=== PATIENT | male | born 1955 | race Caucasian/White ===

== ENCOUNTER 2023-07-05 09:17 | Inpatient (IN) | payer MEDICARE, MEDICAID ==
[~2023-07-05] VITALS: Ht 167.6 cm; Wt 84.8 kg
--- NOTE | 2023-07-05 09:30 | NUR ---
DR. EARL TOLD WANTS ORDERS ADDED.
[2023-07-05 10:31] LABS: BASOPHILS # (AUTO) 0.1 X10'3 (0-0.2); BASOPHILS % (AUTO) 0.5 % (0-1); EOSINOPHILS % (AUTO) 0.3 % (0-6); HEMATOCRIT 47.2 % (42.0-52.0); HEMOGLOBIN 15.4 g/dl (14.0-17.9); LYMPHOCYTES # (AUTO) 0.4 X10'3 (1.1-4.8); LYMPHOCYTES % (AUTO) 3.3 % (21-51); MEAN CORPUSCULAR HEMOGLOBIN 33.1 PG (27.0-31.0); MEAN CORPUSCULAR HGB CONC 32.7 g/dL (33.0-36.5); MEAN CORPUSCULAR VOLUME 101.3 FL (78-98); MEAN PLATELET VOLUME 8.1 FL (7.4-10.4); MONOCYTES # (AUTO) 0.7 X10'3 (0-0.9); MONOCYTES % (AUTO) 6.4 % (2-12); NEUTROPHILS # (AUTO) 9.6 X10'3 (1.8-7.7); NEUTROPHILS % (AUTO) 89.5 % (42-75); PLATELET COUNT 175 X10'3 (140-440); RED BLOOD COUNT 4.66 X10'6 (4.70-6.10); RED CELL DISTRIBUTION WIDTH 16.4 % (11.5-14.5); WHITE BLOOD COUNT 10.8 X10'3 (4.5-11.0)
[2023-07-05 10:41] LABS: ALBUMIN 2.8 G/DL (3.4-5.0); ALBUMIN/GLOBULIN RATIO 0.7 (1.1-1.5); ALKALINE PHOSPHATASE 61 IU/L (46-116); ANION GAP 6 (8-16); ASPARTATE AMINO TRANSFERASE 16 U/L (10-37); BILIRUBIN,TOTAL 2.4 MG/DL (0.1-1.0); BLOOD UREA NITROGEN 18 MG/DL (7-18); BUN/CREATININE RATIO 26.5 (10.0-20.0); CALCIUM 8.5 MG/DL (8.5-10.1); CHLORIDE 104 MMOL/L (99-107); CREATININE 0.68 MG/DL (0.60-1.10); GLUCOSE 93 MG/DL (70-104); LIPASE < 50 U/L (73-393); POTASSIUM 4.2 MMOL/L (3.5-5.1); PRO BRAIN NATRIURETIC PEPTIDE 5685 PG/ML (0-125); SODIUM 142 MMOL/L (135-145); TOTAL CARBON DIOXIDE 32.2 MMOL/L (24-32); TOTAL PROTEIN 6.6 G/DL (6.4-8.2); eCRCL 91 ML/MIN; eGFR > 90 ML/MIN
[2023-07-05 10:46] LABS: ALANINE AMINOTRANSFERASE < 6 U/L (12-78)
[2023-07-05] MEDS ORDERED: furosemide 10 MG/1 ML 10ml inj IV ONE (10:50)
[2023-07-05] MEDS ORDERED: aspirin 81mg tab.chew PO ONE (10:50)
[2023-07-05] MEDS ORDERED: ondansetron/PF 4mg/2ml inj IV PRN (12:50)
[2023-07-05] MEDS ORDERED: potassium Cl 20 mEq SR tablet PO PRN ×2 (12:50)
[2023-07-05] MEDS ORDERED: magnesium hydroxide 30ml (MOM) UD suspension PO PRN (12:50)
[2023-07-05] MEDS ORDERED: potassium Cl 40MEQ/1/2NS 520ml 520 ML IV PRN (12:50)
[2023-07-05] MEDS ORDERED: magnesium Cl slow-release 64mg tablet PO PRN (12:50)
[2023-07-05] MEDS ORDERED: magnesium 4gm in 100ml NS 100 ML IV PRN (12:50)
[2023-07-05] MEDS ORDERED: magnesium 2GM in 50ml NS 50 ML IV PRN (12:50)
[2023-07-05] MEDS ORDERED: acetaminophen 325mg tablet PO PRN (12:50)
[2023-07-05] MEDS ORDERED: mag hydrox/Alum hydrox/simeth 30ml oral suspension PO PRN (12:50)
[2023-07-05] MEDS ORDERED: vancomycin/NS 1 GM ADD-VANTAGE 250 ML IV SCH (13:04)
[2023-07-05 13:20] LABS: HEMOGLOBIN A1C 5.4 % (4.5-6.2)
[2023-07-05] MEDS ORDERED: ampicillin/sulbac 3gm/NS 100ml 100 ML IV ONE ×2 (14:00→15:25)
[2023-07-05 14:43] LABS: BILIRUBIN,URINE NEGATIVE (Neg); CLARITY,URINE CLOUDY (Clear); COLOR,URINE YELLOW (Yellow); GLUCOSE, URINE NEGATIVE (Neg); KETONES,URINE NEGATIVE (Neg); LEUKOCYTE ESTERASE ,URINE TRACE (Neg); NITRITES, URINE NEGATIVE (Neg); OCCULT BLOOD,URINE MODERATE (Neg); PROTEIN,URINE NEGATIVE (Neg)
[2023-07-05 14:50] LABS: UA COLLECTION TYPE URINAL
[2023-07-05 14:52] LABS: BACTERIA,URINE 4+ /HPF (Neg); RBC,URINE 20-50 /HPF (0-2); SQUAMOUS EPITHELIAL CELL,UR FEW /LPF (FEW)
[2023-07-05] MEDS: heparin, porcine 5000 units/ml vial SQ SCH (16:00)
[2023-07-05 18:00] VITALS: BP 140/65; PULSE 74; RESP 16; TEMP 97.8; O2SAT 97
[2023-07-05] MEDS ORDERED: NO HOME MEDS (18:36)
[2023-07-05] MEDS: K and/or MAG REPLACEMENT MC SCH (19:28)
[2023-07-05] MEDS: furosemide 20 MG/2 ML vial IV SCH (19:39)
[2023-07-05] MEDS: docusate sod 100mg capsule PO SCH (19:40)
[2023-07-05 20:00] VITALS: RESP 17; O2SAT 93
[2023-07-05] MEDS ORDERED: furosemide 40mg/4ml inj IV ONE (20:00)
--- NOTE | 2023-07-05 20:10 | NUR ---
Patient in room ORTHO 4009. I have received report from Azra RYAN and had the opportunity to ask questions and assume patient care.
[2023-07-05] MEDS: ampicill/sulbac 1.5gm/NS 100ml 100 ML IV SCH (21:25)
[2023-07-05 22:00] VITALS: BP 98/66; PULSE 71; RESP 17; TEMP 96.7; O2SAT 93
[2023-07-06] VITALS (10 sets, daily range): BP systolic 82–115; BP diastolic 48–70; PULSE 72–110; RESP 15–19; TEMP 97.8–98.7; O2SAT 92–98
[2023-07-06] MEDS: heparin, porcine 5000 units/ml vial SQ SCH ×3 (00:11→16:57)
[2023-07-06] MEDS: ampicill/sulbac 1.5gm/NS 100ml 100 ML IV SCH ×4 (02:12→20:24)
--- NOTE | 2023-07-06 02:20 | NUR ---
[id number] Javan Harris ext [id number] Lab reported a positive blood cx rt arm gram negative rods anaerobic. Pt is currently on unasyn. Thanks, Roxane Addendum: 07/06/23 at 0229 by Chana Del Valle RN Per Dr Max pt will continue on unasyn
--- NOTE | 2023-07-06 02:36 | NUR ---
[id number] Javan Harris Ext [id number] Lab just notified of Positive blood cultures rt arm gram neg rods in the aerobic bottle. Pt is currently on unasyn. Thanks, Roxane Addendum: 07/06/23 at 0540 by Chana Del Valle RN Per Dr Max Pt will continue on the course of antibiotics they are currently on
--- NOTE | 2023-07-06 06:30 | NUR ---
Patient in room ORTHO 4009. I have received report from Rolf and had the opportunity to ask questions and assume patient care.
[2023-07-06 06:59] LABS: BASOPHILS # (AUTO) 0.1 X10'3 (0-0.2); BASOPHILS % (AUTO) 0.6 % (0-1); EOSINOPHILS # (AUTO) 0.2 X10'3 (0-0.9); EOSINOPHILS % (AUTO) 1.6 % (0-6); HEMATOCRIT 46.3 % (42.0-52.0); HEMOGLOBIN 15.3 g/dl (14.0-17.9); LYMPHOCYTES # (AUTO) 0.5 X10'3 (1.1-4.8); MEAN CORPUSCULAR HEMOGLOBIN 33.4 PG (27.0-31.0); MEAN CORPUSCULAR VOLUME 101.3 FL (78-98); MEAN PLATELET VOLUME 8.1 FL (7.4-10.4); MONOCYTES # (AUTO) 0.9 X10'3 (0-0.9); MONOCYTES % (AUTO) 8.5 % (2-12); NEUTROPHILS # (AUTO) 9.2 X10'3 (1.8-7.7); NEUTROPHILS % (AUTO) 84.3 % (42-75); PLATELET COUNT 171 X10'3 (140-440); RED BLOOD COUNT 4.57 X10'6 (4.70-6.10); RED CELL DISTRIBUTION WIDTH 16.4 % (11.5-14.5); WHITE BLOOD COUNT 10.9 X10'3 (4.5-11.0)
[2023-07-06 07:17] LABS: APTT 37 SECONDS (22-32); INR 1.3 INR; PROTHROMBIN TIME 13.4 SECONDS (9.0-12.0)
[2023-07-06] MEDS: furosemide 20 MG/2 ML vial IV SCH ×2 (07:20→20:24)
[2023-07-06] MEDS: docusate sod 100mg capsule PO SCH ×2 (07:20→20:39)
[2023-07-06 07:32] LABS: ALANINE AMINOTRANSFERASE 8 U/L (12-78); ALBUMIN 2.6 G/DL (3.4-5.0); ALBUMIN/GLOBULIN RATIO 0.7 (1.1-1.5); ALKALINE PHOSPHATASE 60 IU/L (46-116); ANION GAP 2 (8-16); ASPARTATE AMINO TRANSFERASE 17 U/L (10-37); BLOOD UREA NITROGEN 16 MG/DL (7-18); BUN/CREATININE RATIO 20.5 (10.0-20.0); CALCIUM 8.6 MG/DL (8.5-10.1); CHLORIDE 102 MMOL/L (99-107); CHOL/HDL RATIO 2.8 (0.00-4.99); CHOLESTEROL 137 MG/DL (0-200); CREATININE 0.78 MG/DL (0.60-1.10); GLUCOSE 80 MG/DL (70-104); HDL CHOLESTEROL 49 MG/DL (35-60); LDL CHOLESTEROL 75 MG/DL (50-100); MAGNESIUM 1.7 MG/DL (1.5-2.4); POTASSIUM 4.1 MMOL/L (3.5-5.1); SODIUM 142 MMOL/L (135-145); THYROID STIMULATING HORMONE 2.44 ulU/ml (0.34-4.50); TOTAL CARBON DIOXIDE 37.6 MMOL/L (24-32); TOTAL PROTEIN 6.2 G/DL (6.4-8.2); TRIGLYCERIDES 76 MG/DL (20-135); eCRCL 80 ML/MIN; eGFR > 90 ML/MIN
[2023-07-06] MEDS: K and/or MAG REPLACEMENT MC SCH ×2 (07:32→20:00)
[2023-07-06] MEDS ORDERED: CefTRIAXone/D5W-Rocephin 1gm 50 ML IV SCH (08:00)
[2023-07-06] MEDS: predniSONE 20 mg tablet PO SCH (13:15)
--- NOTE | 2023-07-06 14:16 | NUR ---
PRESSURE ULCER EDUCATION: DEFINITION: A pressure ulcer is an area of skin that breaks down when you stay in one position too long. The constant pressure against the skin reduces the blood flow to that area and the affected tissue dies. CAUSES: "Being bedridden or in a wheelchair "Fragile skin "Having a chronic condition, such as diabetes or vascular disease "Inability to move certain parts of your body without assistance "Older age "Incontinence of urine or stool SYMPTOMS: "A reddened area that DOES NOT turn white when pressed on - this can be the beginning of a pressure ulcer "A blister, deep sore or a crater - these can be advanced pressure ulcers FIRST AID: "Relieve the pressure on this area "Keep the area clean and dry "Call your primary doctor if you see any of the above symptoms "DO NOT massage the area "DO NOT use a donut shaped or ring shaped pillow- these actually interfere with the blood flow and cause complications PREVENTION: "Check for pressure ulcers everyday "Change position at least every two hours to relieve pressure "Use items that help relieve pressure- pillows, sheepskin, foam padding, and powders. "Keep skin clean and dry "Eat healthy well balanced meals "Exercise daily IF YOU SEE ANY OF THESE SYMPTOMS WHILE IN THE HOSPITAL - TELL YOUR NURSE IMMEDIATELY. IF YOU SEE ANY OF THESE SYMPTOMS WHILE AT HOME OR HAVE ANY QUESTIONS OR CONCERNS ABOUT PRESSURE ULCERS - CALL YOUR PRIMARY DOCTOR IMMEDIATELY. Addendum: 07/06/23 at 1417 by Vaibhav Luu RN Amended: Links added.
[2023-07-06] MEDS: ipratropium/albuterol 3ml nebule NEB SCH ×2 (15:05→20:40)
--- NOTE | 2023-07-06 18:33 | NUR ---
Problems reprioritized. Patient report given, questions answered & plan of care reviewed with Mario.
--- NOTE | 2023-07-06 18:35 | NUR ---
Patient in room ORTHO 4009. I have received report from CAT CASTANO and had the opportunity to ask questions and assume patient care.
[2023-07-07] VITALS (14 sets, daily range): BP systolic 93–100; BP diastolic 57–64; PULSE 72–101; RESP 16–20; TEMP 97.8–98.6; O2SAT 87–96
[2023-07-07] MEDS ORDERED: VANCOMYCIN LEVEL IV ONE (00:30)
[2023-07-07] MEDS: heparin, porcine 5000 units/ml vial SQ SCH ×3 (01:08→16:37)
[2023-07-07] MEDS: ipratropium/albuterol 3ml nebule NEB SCH ×4 (02:40→19:41)
[2023-07-07] MEDS: ampicill/sulbac 1.5gm/NS 100ml 100 ML IV SCH ×4 (03:02→19:58)
--- NOTE | 2023-07-07 06:29 | NUR ---
Problems reprioritized. Patient report given, questions answered & plan of care reviewed with BASSAM RN.
--- NOTE | 2023-07-07 07:02 | NUR ---
Patient in room ORTHO 4009. I have received report from Mario CASTANO and had the opportunity to ask questions and assume patient care.
[2023-07-07 07:14] LABS: BASOPHILS % (AUTO) 0 % (0-1); EOSINOPHILS % (AUTO) 0 % (0-6); HEMATOCRIT 43.4 % (42.0-52.0); HEMOGLOBIN 14.2 g/dl (14.0-17.9); LYMPHOCYTES # (AUTO) 0.2 X10'3 (1.1-4.8); LYMPHOCYTES % (AUTO) 2.1 % (21-51); MEAN CORPUSCULAR HEMOGLOBIN 32.9 PG (27.0-31.0); MEAN CORPUSCULAR HGB CONC 32.6 g/dL (33.0-36.5); MEAN CORPUSCULAR VOLUME 100.8 FL (78-98); MEAN PLATELET VOLUME 8.4 FL (7.4-10.4); MONOCYTES # (AUTO) 0.4 X10'3 (0-0.9); MONOCYTES % (AUTO) 3.9 % (2-12); NEUTROPHILS # (AUTO) 8.6 X10'3 (1.8-7.7); PLATELET COUNT 162 X10'3 (140-440); RED BLOOD COUNT 4.31 X10'6 (4.70-6.10); WHITE BLOOD COUNT 9.2 X10'3 (4.5-11.0)
[2023-07-07 07:20] LABS: APTT 37 SECONDS (22-32); INR 1.2 INR
[2023-07-07 07:45] LABS: ALANINE AMINOTRANSFERASE 7 U/L (12-78); ALBUMIN 2.4 G/DL (3.4-5.0); ALBUMIN/GLOBULIN RATIO 0.7 (1.1-1.5); ALKALINE PHOSPHATASE 60 IU/L (46-116); ANION GAP 3 (8-16); ASPARTATE AMINO TRANSFERASE 15 U/L (10-37); BILIRUBIN,TOTAL 1.2 MG/DL (0.1-1.0); BLOOD UREA NITROGEN 19 MG/DL (7-18); BUN/CREATININE RATIO 26.4 (10.0-20.0); CALCIUM 8.1 MG/DL (8.5-10.1); CHLORIDE 101 MMOL/L (99-107); CREATININE 0.72 MG/DL (0.60-1.10); GLUCOSE 155 MG/DL (70-104); MAGNESIUM 1.8 MG/DL (1.5-2.4); PHOSPHORUS 3.4 MG/DL (2.3-4.5); POTASSIUM 3.7 MMOL/L (3.5-5.1); SODIUM 140 MMOL/L (135-145); TOTAL CARBON DIOXIDE 35.8 MMOL/L (24-32); TOTAL PROTEIN 5.7 G/DL (6.4-8.2); eCRCL 86 ML/MIN; eGFR > 90 ML/MIN
[2023-07-07] MEDS: K and/or MAG REPLACEMENT MC SCH ×2 (08:00→20:00)
[2023-07-07] MEDS: furosemide 20 MG/2 ML vial IV SCH ×2 (08:00→19:58)
--- NOTE | 2023-07-07 09:00 | NUR ---
Held patients lasix after having a low BP that is outside the range to give lasixs.
[2023-07-07] MEDS: predniSONE 20 mg tablet PO SCH (09:38)
[2023-07-07] MEDS: docusate sod 100mg capsule PO SCH ×2 (09:38→20:05)
--- NOTE | 2023-07-07 18:27 | NUR ---
Problems reprioritized. Patient report given, questions answered & plan of care reviewed with Mario CASTANO.
--- NOTE | 2023-07-07 18:30 | NUR ---
Patient in room ORTHO 4009. I have received report from BASSAM CASTANO and had the opportunity to ask questions and assume patient care.
[2023-07-08] VITALS (14 sets, daily range): BP systolic 101–114; BP diastolic 59–67; PULSE 85–105; RESP 16–18; TEMP 97.7–98.1; O2SAT 90–94
[2023-07-08] MEDS: heparin, porcine 5000 units/ml vial SQ SCH ×4 (00:13→23:25)
[2023-07-08] MEDS: ampicill/sulbac 1.5gm/NS 100ml 100 ML IV SCH ×4 (01:52→20:49)
[2023-07-08] MEDS: ipratropium/albuterol 3ml nebule NEB SCH ×4 (02:46→20:04)
[2023-07-08 06:19] LABS: BASOPHILS % (AUTO) 0.1 % (0-1); EOSINOPHILS % (AUTO) 0 % (0-6); HEMATOCRIT 40.9 % (42.0-52.0); HEMOGLOBIN 13.4 g/dl (14.0-17.9); LYMPHOCYTES # (AUTO) 0.3 X10'3 (1.1-4.8); LYMPHOCYTES % (AUTO) 2.8 % (21-51); MEAN CORPUSCULAR HEMOGLOBIN 33.2 PG (27.0-31.0); MEAN CORPUSCULAR HGB CONC 32.9 g/dL (33.0-36.5); MEAN PLATELET VOLUME 8.4 FL (7.4-10.4); MONOCYTES # (AUTO) 0.8 X10'3 (0-0.9); MONOCYTES % (AUTO) 9.1 % (2-12); NEUTROPHILS # (AUTO) 7.9 X10'3 (1.8-7.7); PLATELET COUNT 168 X10'3 (140-440); RED BLOOD COUNT 4.05 X10'6 (4.70-6.10); RED CELL DISTRIBUTION WIDTH 15.9 % (11.5-14.5)
--- NOTE | 2023-07-08 06:28 | NUR ---
Problems reprioritized. Patient report given, questions answered & plan of care reviewed with BASSAM RN.
[2023-07-08 06:42] LABS: ALANINE AMINOTRANSFERASE 10 U/L (12-78); ALBUMIN 2.5 G/DL (3.4-5.0); ALBUMIN/GLOBULIN RATIO 0.7 (1.1-1.5); ALKALINE PHOSPHATASE 57 IU/L (46-116); ANION GAP 0 (8-16); ASPARTATE AMINO TRANSFERASE 17 U/L (10-37); BILIRUBIN,TOTAL 0.9 MG/DL (0.1-1.0); BLOOD UREA NITROGEN 25 MG/DL (7-18); BUN/CREATININE RATIO 34.2 (10.0-20.0); CALCIUM 8.3 MG/DL (8.5-10.1); CHLORIDE 100 MMOL/L (99-107); CREATININE 0.73 MG/DL (0.60-1.10); GLUCOSE 108 MG/DL (70-104); MAGNESIUM 1.6 MG/DL (1.5-2.4); PHOSPHORUS 2.6 MG/DL (2.3-4.5); POTASSIUM 3.8 MMOL/L (3.5-5.1); SODIUM 140 MMOL/L (135-145); TOTAL PROTEIN 5.9 G/DL (6.4-8.2); eCRCL 85 ML/MIN; eGFR > 90 ML/MIN
[2023-07-08 06:52] LABS: TOTAL CARBON DIOXIDE 40.3 MMOL/L (24-32)
--- NOTE | 2023-07-08 07:04 | NUR ---
PAGER ID: [phone] MESSAGE: Sree Clark [id number] Mallika Harris Patient has a critical lab of CO2 of 40.3 patients level have steadily been increasing over that past few days. Thanks
[2023-07-08] MEDS: K and/or MAG REPLACEMENT MC SCH ×2 (08:00→20:00)
[2023-07-08] MEDS: docusate sod 100mg capsule PO SCH ×2 (09:03→20:55)
[2023-07-08] MEDS: predniSONE 20 mg tablet PO SCH (09:04)
[2023-07-08] MEDS: furosemide 20 MG/2 ML vial IV SCH ×2 (09:05→20:55)
[2023-07-09] VITALS (16 sets, daily range): BP systolic 88–128; BP diastolic 51–79; PULSE 78–103; RESP 15–18; TEMP 97.3–97.8; O2SAT 90–97
[2023-07-09] MEDS: ampicill/sulbac 1.5gm/NS 100ml 100 ML IV SCH ×4 (02:10→20:39)
[2023-07-09] MEDS: ipratropium/albuterol 3ml nebule NEB SCH ×4 (02:48→20:18)
[2023-07-09] MEDS ORDERED: ondansetron/PF 4mg/2ml inj IV ONE (06:35)
--- NOTE | 2023-07-09 06:35 | NUR ---
Problems reprioritized. Patient report given, questions answered & plan of care reviewed with rogelio Agarwal.
[2023-07-09 06:39] LABS: BASOPHILS % (AUTO) 0.1 % (0-1); EOSINOPHILS % (AUTO) 0.2 % (0-6); HEMATOCRIT 41.3 % (42.0-52.0); HEMOGLOBIN 13.5 g/dl (14.0-17.9); LYMPHOCYTES # (AUTO) 0.4 X10'3 (1.1-4.8); LYMPHOCYTES % (AUTO) 4.5 % (21-51); MEAN CORPUSCULAR HEMOGLOBIN 33.1 PG (27.0-31.0); MEAN CORPUSCULAR HGB CONC 32.6 g/dL (33.0-36.5); MEAN CORPUSCULAR VOLUME 101.8 FL (78-98); MEAN PLATELET VOLUME 8.1 FL (7.4-10.4); MONOCYTES # (AUTO) 0.9 X10'3 (0-0.9); NEUTROPHILS # (AUTO) 6.7 X10'3 (1.8-7.7); NEUTROPHILS % (AUTO) 84.2 % (42-75); PLATELET COUNT 156 X10'3 (140-440); RED BLOOD COUNT 4.06 X10'6 (4.70-6.10); RED CELL DISTRIBUTION WIDTH 16.2 % (11.5-14.5)
[2023-07-09 07:12] LABS: ALANINE AMINOTRANSFERASE 7 U/L (12-78); ALBUMIN 2.3 G/DL (3.4-5.0); ALBUMIN/GLOBULIN RATIO 0.7 (1.1-1.5); ALKALINE PHOSPHATASE 43 IU/L (46-116); ANION GAP 0 (8-16); ASPARTATE AMINO TRANSFERASE 22 U/L (10-37); BILIRUBIN,TOTAL 0.8 MG/DL (0.1-1.0); BLOOD UREA NITROGEN 24 MG/DL (7-18); BUN/CREATININE RATIO 35.3 (10.0-20.0); CALCIUM 7.8 MG/DL (8.5-10.1); CHLORIDE 100 MMOL/L (99-107); CREATININE 0.68 MG/DL (0.60-1.10); GLUCOSE 105 MG/DL (70-104); MAGNESIUM 1.6 MG/DL (1.5-2.4); PHOSPHORUS 2.8 MG/DL (2.3-4.5); POTASSIUM 3.9 MMOL/L (3.5-5.1); SODIUM 140 MMOL/L (135-145); TOTAL CARBON DIOXIDE 39.6 MMOL/L (24-32); TOTAL PROTEIN 5.4 G/DL (6.4-8.2); eCRCL 91 ML/MIN; eGFR > 90 ML/MIN
[2023-07-09] MEDS ORDERED: folic acid 1mg tablet PO ONE (07:35)
[2023-07-09] MEDS: furosemide 20 MG/2 ML vial IV SCH ×2 (08:00→20:40)
[2023-07-09] MEDS: K and/or MAG REPLACEMENT MC SCH ×2 (08:00→20:00)
[2023-07-09] MEDS: predniSONE 20 mg tablet PO SCH (09:15)
[2023-07-09] MEDS: cyanocobalamin 500mcg tablet PO SCH (09:15)
[2023-07-09] MEDS: docusate sod 100mg capsule PO SCH ×2 (09:16→20:40)
[2023-07-09] MEDS: folic acid/vitamin B complex w/vitamin C 0.8mg tablet PO SCH (09:16)
[2023-07-09] MEDS: thiamine 100mg tablet PO SCH ×2 (09:16→20:40)
[2023-07-09] MEDS: heparin, porcine 5000 units/ml vial SQ SCH ×3 (09:18→23:24)
--- NOTE | 2023-07-09 18:41 | NUR ---
Report to Gardenia CASTANO
[2023-07-10] VITALS (8 sets, daily range): BP systolic 109; BP diastolic 75; PULSE 88–95; RESP 16–20; TEMP 97.8; O2SAT 89–97
[2023-07-10] MEDS: ampicill/sulbac 1.5gm/NS 100ml 100 ML IV SCH ×2 (01:37→11:07)
[2023-07-10] MEDS: ipratropium/albuterol 3ml nebule NEB SCH ×3 (02:25→13:51)
[2023-07-10 06:21] LABS: HEMOGLOBIN 13.9 g/dl (14.0-17.9); MEAN CORPUSCULAR HEMOGLOBIN 33.5 PG (27.0-31.0)
[2023-07-10 06:23] LABS: BASOPHILS % (AUTO) 0.1 % (0-1); EOSINOPHILS % (AUTO) 0.3 % (0-6); HEMATOCRIT 42.1 % (42.0-52.0); LYMPHOCYTES # (AUTO) 0.4 X10'3 (1.1-4.8); LYMPHOCYTES % (AUTO) 5.6 % (21-51); MEAN CORPUSCULAR VOLUME 101.7 FL (78-98); MEAN PLATELET VOLUME 7.8 FL (7.4-10.4); MONOCYTES % (AUTO) 12.1 % (2-12); NEUTROPHILS # (AUTO) 6.5 X10'3 (1.8-7.7); NEUTROPHILS % (AUTO) 81.9 % (42-75); PLATELET COUNT 161 X10'3 (140-440); RED BLOOD COUNT 4.14 X10'6 (4.70-6.10); RED CELL DISTRIBUTION WIDTH 15.9 % (11.5-14.5)
[2023-07-10 06:30] LABS: ALANINE AMINOTRANSFERASE 12 U/L (12-78); ALBUMIN 2.4 G/DL (3.4-5.0); ALBUMIN/GLOBULIN RATIO 0.8 (1.1-1.5); ALKALINE PHOSPHATASE 41 IU/L (46-116); ANION GAP -2 (8-16); ASPARTATE AMINO TRANSFERASE 25 U/L (10-37); BILIRUBIN,TOTAL 0.9 MG/DL (0.1-1.0); BLOOD UREA NITROGEN 24 MG/DL (7-18); BUN/CREATININE RATIO 34.3 (10.0-20.0); CALCIUM 8.3 MG/DL (8.5-10.1); CHLORIDE 101 MMOL/L (99-107); GLUCOSE 96 MG/DL (70-104); MAGNESIUM 1.7 MG/DL (1.5-2.4); PHOSPHORUS 3.1 MG/DL (2.3-4.5); POTASSIUM 3.9 MMOL/L (3.5-5.1); SODIUM 139 MMOL/L (135-145); TOTAL PROTEIN 5.6 G/DL (6.4-8.2); eCRCL 89 ML/MIN; eGFR > 90 ML/MIN
--- NOTE | 2023-07-10 06:34 | NUR ---
Problems reprioritized. Patient report given, questions answered & plan of care reviewed with rogelio Agarwal.
[2023-07-10 06:44] LABS: TOTAL CARBON DIOXIDE 40.1 MMOL/L (24-32)
[2023-07-10] MEDS ORDERED: EMPAGLIFLOZIN 10 MG TABLET PO SCH (08:00)
[2023-07-10] MEDS: furosemide 20 MG/2 ML vial IV SCH (08:00)
[2023-07-10] MEDS: K and/or MAG REPLACEMENT MC SCH (08:00)
[2023-07-10] MEDS ORDERED: acetaZOLAMIDE IV 500mg inj IV ONE (08:35)
[2023-07-10] MEDS: docusate sod 100mg capsule PO SCH (10:00)
--- NOTE | 2023-07-10 10:28 | NUR ---
Initial: Pt admit DX CHF exacerbation, acute respiratory failure, BLE cellulitis, UTI, and macrocytosis per EMR. PO ~92% initial heart healthy/carb controlled diet meeting protein and ~92% kcal estimated needs w/ carb restriction. Pt w/ no PMH DM A1C 5.4%; RD d/w MD removal of carb restriction and physician agreeable. Current intake will meet estimated 100%needs without carb restriction. Noted +7.53kg wt gain 07/06-07/08 w/ negative 1L flud balance likely bed scale errors; true BMI 27.5. LBM 07/07 receiving routine colace per EMR. No further nutrition interventions at this time. Will continue to follow. Rec: 1. continue heart healthy diet; carb restriction not indicated no hx DM A1C 5.4% 2. routine thiamine, B12, and MVI for macrocytosis per MD 3. routine bowel care 4. daily wt Addendum: 07/10/23 at [address] Amended: Links added.
[2023-07-10] MEDS: thiamine 100mg tablet PO SCH (11:07)
[2023-07-10] MEDS: heparin, porcine 5000 units/ml vial SQ SCH (11:07)
[2023-07-10] MEDS: cyanocobalamin 500mcg tablet PO SCH (11:07)
[2023-07-10] MEDS: folic acid/vitamin B complex w/vitamin C 0.8mg tablet PO SCH (11:07)
[2023-07-11] MEDS ORDERED: acetaZOLAMIDE IV 500mg inj IV SCH (08:00)
== END 2023-07-10 14:45 | DRG 871 ==
LOC: ER 09:17 → ED HOLD 12:55 → ORTHO 4S 17:45
PROVIDERS: ADMIT Family Medicine; ATTEND Family Medicine
DX: A41.9 Sepsis, unspecified organism (principal); I50.33 Acute on chronic diastolic (congestive) heart failure; J96.01 Acute respiratory failure with hypoxia; L03.116 Cellulitis of left lower limb; N39.0 Urinary tract infection, site not specified; E87.3 Alkalosis; R78.81 Bacteremia; L03.115 Cellulitis of right lower limb; I27.21 Secondary pulmonary arterial hypertension; J43.9 Emphysema, unspecified; B96.1 Klebsiella pneumoniae [K. pneumoniae] as the cause of diseases classified elsewhere; K80.70 Calculus of gallbladder and bile duct without cholecystitis without obstruction; I48.91 Unspecified atrial fibrillation; D75.89 Other specified diseases of blood and blood-forming organs; Z87.891 Personal history of nicotine dependence
CPT/HCPCS: 36415; 71045; 74176; 80053; 80061; 81001; 82248; 82607; 83036; 83605; 83690; 83735; 83880; 84100; 84145; 84443; 84484; 85025; 85610; 85730; 87040; 87077; 87081; 87088; 87186; 93005; 93306; 93970; 94640; 94664; 94760; 96374; 97116; 97161; 97530; 99285; A6213; A6223; A6250; A6449; G0378; J0295; J1120; J1644; J1940; J3370; J7030; J7040; J7512